=== PATIENT | female | born 1945 | race Caucasian/White ===

== ENCOUNTER 2017-07-09 09:56 | Emergency (ER) | payer OTHER ==
[~2017-07-09] VITALS: Ht 157.5 cm; Wt 70.0 kg
[2017-07-09 09:59] VITALS: Ht 157.5 cm; Wt 70.0 kg
[2017-07-09] MEDS ORDERED: IBUPROFEN 600 MG TAB PO ONE (11:00)
--- NOTE | 2017-07-09 11:24 | ERD ---
ER Documentation Chief Complaint Date/Time DATE: 07/09/17 TIME: 11:24 Chief Complaint BIB [facility] 881 FOR EVAL OF LOW BACK PAIN. DENIES ANY TRUAMA OR INJURY HPI 71-year-old female brought in by ambulance for right-sided back pain that started while she was sweeping her backyard this morning. She states the pain radiates down her right leg. She denies any numbness, tingling, or weakness. The pain is worse with any type of movement, better with laying still. No change in bowel or urinary habits. Currently her pain is a 5 out of 10 at rest. Is located in the right lower back, radiating down the back of her right leg. She has had symptoms like this before several years ago. She denies any previous trauma. No weight loss, night sweats, history of IV drug use, history of cancer. ROS All systems reviewed and are negative except as per history of present illness. Medications Home Meds Active Scripts Ibuprofen* (Motrin*) 600 Mg Tab, 600 MG PO Q6H Y for PAIN AND OR ELEVATED TEMP, #30 TAB Prov:VERONICA ROSS MD 07/09/17 Allergies Allergies: Coded Allergies: No Known Allergy (Unverified , 07/09/17) PMhx/Soc Medical and Surgical Hx: pt denies Medical Hx, pt denies Surgical Hx Hx Alcohol Use: No Hx Substance Use: No Hx Tobacco Use: No Smoking Status: Never smoker FmHx Family History: No diabetes Physical Exam Vitals Vital Signs Date Time Temp Pulse Resp B/P Pulse Ox O2 Delivery O2 Flow Rate FiO2 07/09/17 09:59 97.9 97 19 183/82 100 Physical Exam Const: Well-appearing, no apparent distress Head: Atraumatic Eyes: Normal Conjunctiva ENT: Normal External Ears, Nose and Mouth. Neck: Full range of motion..~ No meningismus. Resp: Clear to auscultation bilaterally Cardio: Regular rate and rhythm, no murmurs Abd: Soft, non tender, non distended. Normal bowel sounds Skin: No petechiae or rashes Back: No midline or flank tenderness. Right paraspinal lumbar muscle point tenderness. Positive straight leg raise on the right. Ext: No cyanosis, or edema Neur: Awake and alert and oriented 3, strength and sensations intact in all 4 extremities. 2+ pulses in all 4 extremities. Antalgic gait Psych: Normal Mood and Affect Results 24 hrs Current Medications Medications (Trade) Dose Ordered Sig/Arik Route PRN Reason Start Time Stop Time Status Last Admin Dose Admin Ibuprofen (Motrin) 600 mg ONCE ONCE PO 07/09/17 11:00 07/09/17 11:01 DC 07/09/17 10:53 Procedures/MDM The patient is neurovascularly intact on exam with unremarkable vitals. I have a low suspicion for spinal tumor as the patient has no history of cancer, night sweats, or weight loss. I have a low suspicion for bone or disc infection, cauda equina, cord compression, acute spinal fracture, infiltrative, or infectious etiology. I gave her a dose of ibuprofen here. She refused any stronger pain medications. Upon reevaluation, patient's musculoskeletal symptoms have stabilized while they have been evaluated in the department and are appropriate for outpatient work up. I advised follow up with their PCP in 1- 2 days. Return precautions were discussed in detail. I recommended rest and analgesics. Departure Diagnosis: Primary Impression: Lumbar strain Encounter type: initial encounter Qualified Code: S39.012A - Lumbar strain, initial encounter Additional Impression: Sciatic leg pain Condition: Stable VERONICA ROSS MD Jul 09, 2017 11:24
[2017-07-09] MEDS ORDERED: IBUP-1542 PO (11:38)
== END 2017-07-09 14:01 | disposition home or self-care (01) ==
LOC: E/R 09:56
DX: S39.012A Strain of muscle, fascia and tendon of lower back, initial encounter (principal); M54.31 Sciatica, right side; X58.XXXA Exposure to other specified factors, initial encounter; Y92.9 Unspecified place or not applicable
CPT/HCPCS: 99283